=== PATIENT | female | born 1990 | race African-American/Black ===

== ENCOUNTER 2016-04-03 19:17 | Emergency (ER) | payer MEDICAID ==
[~2016-04-03] VITALS: Ht 172.7 cm; Wt 90.9 kg
[~2016-04-03 19:17] MED LIST: DOXY100C PO; GABA-529 PO; LISI-661 PO; METF500T4 PO; METR500 PO
[2016-04-03 19:51] LABS: GLUCOSE,POINT OF CARE 85 MG/DL (70-110)
[2016-04-03] MEDS ORDERED: HYDROCODONE/ACETAMINOPHEN 5-325 MG TABLET PO ONE (22:30)
[2016-04-03] MEDS ORDERED: DIAZEPAM 5 MG TABLET PO ONE (22:30)
[2016-04-03 22:43] VITALS: BP 121/81
== END 2016-04-03 22:44 | disposition home or self-care (01) ==
LOC: EMS 19:18
DX: S73.101A Unspecified sprain of right hip, initial encounter (principal); M54.5 Low back pain; E11.9 Type 2 diabetes mellitus without complications; I10 Essential (primary) hypertension; Z91.018 Allergy to other foods; X58.XXXA Exposure to other specified factors, initial encounter; Y93.89 Activity, other specified; Y92.89 Other specified places as the place of occurrence of the external cause; Y99.8 Other external cause status
CPT/HCPCS: 72100; 73502; 81025; 82962; 99284

== ENCOUNTER 2016-07-31 21:47 | Emergency (ER) | payer MEDICAID ==
[~2016-07-31] VITALS: Ht 172.7 cm; Wt 86.0 kg
[~2016-07-31 21:47] MED LIST changes: -DOXY100C PO; -METR500 PO
[2016-07-31 22:01] LABS: GLUCOSE,POINT OF CARE 285 MG/DL (70-110)
[2016-07-31] MEDS ORDERED: HYDROCODONE/ACETAMINOPHEN 5-325 MG TABLET PO ONE (22:15)
[2016-07-31 23:39] VITALS: BP 135/70
== END 2016-07-31 23:41 | disposition home or self-care (01) ==
LOC: EMS 21:48
DX: S90.31XA Contusion of right foot, initial encounter (principal); E11.9 Type 2 diabetes mellitus without complications; I10 Essential (primary) hypertension; Z91.018 Allergy to other foods; V09.9XXA Pedestrian injured in unspecified transport accident, initial encounter; Y93.89 Activity, other specified; Y92.89 Other specified places as the place of occurrence of the external cause; Y99.8 Other external cause status
CPT/HCPCS: 81025; 82962; 99284

== ENCOUNTER 2017-06-08 12:30 | Emergency (ER) | payer SELFPAY ==
[~2017-06-08] VITALS: Ht 172.7 cm; Wt 90.5 kg
[~2017-06-08 12:30] MED LIST changes: +DSS100 PO; -GABA-529 PO; +HYDR-309 PO; -LISI-661 PO; -METF500T4 PO
[2017-06-08] MEDS ORDERED: GABA-529 PO (13:03)
[2017-06-08] MEDS ORDERED: FLUO-191 PO (13:03)
[2017-06-08] MEDS ORDERED: LISI-661 PO (13:03)
[2017-06-08] MEDS ORDERED: METF500T4 PO (13:03)
[2017-06-08 13:07] LABS: GLUCOSE,POINT OF CARE 107 MG/DL (70-110)
[2017-06-08 13:59] VITALS: BP 153/96
[2017-06-08] MEDS ORDERED: KETOROLAC TROMETHAMINE 30 MG/ML VIAL IVP ONE (14:15)
[2017-06-08] MEDS ORDERED: IOVERSOL 320 MG/ML 100 ML VIAL ONE (14:16)
[2017-06-08] MEDS ORDERED: SODIUM CHLORIDE 0.9% 0 ML ONE (14:17)
[2017-06-08 14:27] LABS: BASOPHILS % (AUTO) 0.5 % (0.0-2.0); EOSINOPHILS % (AUTO) 0.6 % (1.0-6.0); HEMATOCRIT 37.4 % (36-46); HEMOGLOBIN 12.7 g/dL (12.0-16.0); LYMPHOCYTES # (AUTO) 2.5 K/uL (1.0-4.8); MEAN CORPUSCULAR HEMOGLOBIN 28.1 pg (26.0-34.0); MEAN CORPUSCULAR HGB CONC 33.9 G/dL (31.0-37.0); MEAN CORPUSCULAR VOLUME 83 fL (80-100); MONOCYTES # (AUTO) 0.8 K/uL (0.1-1.0); MONOCYTES % (AUTO) 7.3 % (2.0-9.0); NEUTROPHILS # (AUTO) 7.1 K/uL (1.8-7.7); NEUTROPHILS % (AUTO) 67.6 % (40.0-70.0); PLATELET COUNT (AUTO) 270 K/uL (150-450); RED BLOOD CELL COUNT(AUTO) 4.52 MIL/uL (4.00-5.20); RED CELL DISTRIBUTION WIDTH 14.2 % (11.5-14.5)
[2017-06-08 14:52] LABS: ANION GAP 5 mmol/L (8-16); CALCIUM, TOTAL 8.9 mg/dL (8.8-10.5); CARBON DIOXIDE 27 mmol/L (22-29); CHLORIDE 104 mmol/L (98-107); CREATININE 0.71 mg/dL (0.60-1.30); GLOMERULAR FILTR. RATE CALC > 60 mL/min (>60); GLUCOSE,RANDOM 88 mg/dL (70-110); POTASSIUM 3.8 mmol/L (3.5-5.1); SODIUM SERUM 136 mmol/L (136-145); UREA NITROGEN, BLOOD 10 mg/dL (7-18)
[2017-06-08 14:58] LABS: ALANINE AMINOTRANSFERASE 38 U/L (12-78); ALBUMIN 3.7 g/dL (3.4-5.0); ALKALINE PHOSPHATASE 46 U/L (46-116); ASPARTATE AMINOTRANSFERASE 26 U/L (15-37); BILIRUBIN,TOTAL 0.4 mg/dL (0.1-1.0); TOTAL PROTEIN, SERUM 7.8 g/dL (6.4-8.2)
== END 2017-06-08 15:41 | disposition home or self-care (01) ==
LOC: EMS 12:33
DX: R68.84 Jaw pain (principal); R13.10 Dysphagia, unspecified; E11.9 Type 2 diabetes mellitus without complications; I10 Essential (primary) hypertension
CPT/HCPCS: 70490; 80053; 82962; 84703; 85025; 96374; 99285; J1885; J7050

== ENCOUNTER 2023-09-19 13:08 | Emergency (ER) | payer MEDICAID ==
[~2023-09-19] VITALS: Ht 175.3 cm; Wt 85.0 kg
[~2023-09-19 13:08] MED LIST changes: -DSS100 PO; +FLUO-177 PO; +GABA-1216 PO; -HYDR-309 PO; +LISI-893 PO; +METF-1211 PO
[2023-09-19 13:13] VITALS: BP 131/78; PULSE 91; RESP 16; TEMP 98.3
== END 2023-09-19 15:16 | disposition left against medical advice (07) ==
LOC: EMS 13:13
DX: M25.512 Pain in left shoulder (principal); M54.6 Pain in thoracic spine; Z53.21 Procedure and treatment not carried out due to patient leaving prior to being seen by health care provider
CPT/HCPCS: 82962

== ENCOUNTER 2024-08-10 19:41 | Emergency (ER) | payer MEDICAID, OTHER ==
[~2024-08-10] VITALS: Ht 175.3 cm; Wt 90.9 kg
[2024-08-10 20:24] LABS: COVID AG,FIA SOURCE NASAL SWAB
[2024-08-10 20:51] LABS: RAPID GROUP A STREP NEGATIVE (NEGATIVE)
[2024-08-10 20:54] LABS: SARS-COV2 (COVID) ANTIGEN,FIA Negative (Negative)
[2024-08-10 20:55] LABS: INFLUENZA TYPE A NEGATIVE FOR TYPE A (NEGATIVE); INFLUENZA TYPE B NEGATIVE FOR TYPE B (NEGATIVE)
[2024-08-10 21:26] LABS: ANION GAP 6 mmol/L (8-16); CALCIUM, TOTAL 8.7 mg/dL (8.8-10.5); CARBON DIOXIDE 26 mmol/L (22-29); CHLORIDE 100 mmol/L (98-107); CREATININE 0.82 mg/dL (0.60-1.30); GLOMERULAR FILTR. RATE CALC > 60 mL/min (>60); GLUCOSE,RANDOM 250 mg/dL (70-110); POTASSIUM 3.8 mmol/L (3.5-5.1); SODIUM SERUM 132 mmol/L (136-145); UREA NITROGEN, BLOOD 12 mg/dL (7-18)
[2024-08-10 21:38] LABS: AMYLASE 51 U/L (25-115); HCG,QUANTITATIVE 1 mIU/mL (0-6); LIPASE 46 U/L (16-77)
[2024-08-10 21:39] LABS: EOSINOPHILS % (AUTO) 0.9 % (1.0-6.0); HEMOGLOBIN 13.3 g/dL (12.0-16.0); LYMPHOCYTES # (AUTO) 2.3 K/uL (1.0-4.8); LYMPHOCYTES % (AUTO) 27.5 % (22.0-44.0); MEAN CORPUSCULAR HEMOGLOBIN 28.4 pg (26.0-34.0); MEAN CORPUSCULAR HGB CONC 34.2 G/dL (31.0-37.0); MEAN CORPUSCULAR VOLUME 83 fL (80-100); MONOCYTES # (AUTO) 0.7 K/uL (0.1-1.0); MONOCYTES % (AUTO) 8.2 % (2.0-9.0); NEUTROPHILS # (AUTO) 5.3 K/uL (1.8-7.7); NEUTROPHILS % (AUTO) 62.4 % (40.0-70.0); PLATELET COUNT (AUTO) 261 K/uL (150-450); RED BLOOD CELL COUNT(AUTO) 4.68 MIL/uL (4.00-5.20); RED CELL DISTRIBUTION WIDTH 14.3 % (11.5-14.5); WHITE BLOOD COUNT (AUTO) 8.5 K/uL (4.5-11.0)
[2024-08-10 21:45] VITALS: TEMP 98.105288
[2024-08-10 22:56] LABS: ALBUMIN 3.6 g/dL (3.4-5.0); BILIRUBIN,DIRECT 0.1 mg/dL (0.00-0.20); BILIRUBIN,TOTAL 0.3 mg/dL (0.1-1.0); TOTAL PROTEIN, SERUM 7.9 g/dL (6.4-8.2)
[2024-08-10] MEDS: MORPHINE SULFATE 2 MG/ML SYRINGE IVP ONE (23:33)
[2024-08-10] MEDS: SODIUM CHLORIDE 0.9% 1,000 ML IV ONE (23:33)
[2024-08-10] MEDS: FAMOTIDINE 20 MG/2 ML VIAL IVP ONE (23:33)
[2024-08-11] MEDS: METOCLOPRAMIDE HCL 5 MG/ML 2 ML VIAL IVP ONE (00:45)
[2024-08-11 01:04] VITALS: BP 120/71; PULSE 69; RESP 18; O2SAT 98
[2024-08-11 01:16] LABS: APPEARANCE,URINE CLEAR (CLEAR); BILIRUBIN,URINE NEGATIVE (NEGATIVE); COLOR,URINE LIGHT YELLOW (YELLOW); GLUCOSE, URINE (UA) >=1000 mg/dL (NEGATIVE); KETONES,URINE TRACE mg/dL (NEGATIVE); LEUKOCYTE ESTERASE ,URINE NEGATIVE (NEGATIVE); NITRATE,URINE NEGATIVE (NEGATIVE); OCCULT BLOOD,URINE NEGATIVE (NEGATIVE); PROTEIN,URINE 30-70 mg/dL (NEGATIVE); SPECIFIC GRAVITIY, URINE 1.019 (1.003-1.030); UROBILINOGEN,URINE <=1.0 mg/dL (<=1.0)
[2024-08-11 01:23] LABS: ALCOHOL, URINE DRUG SCREEN NEGATIVE (NEGATIVE); AMPHET/METH SCREEN,URINE NEGATIVE (NEGATIVE); BARBITURATE SCREEN, URINE NEGATIVE (NEGATIVE); BENZODIAZEPINES SCREEN,URINE NEGATIVE (NEGATIVE); CANNABINOID SCREEN,URINE NEGATIVE (NEGATIVE); COCAINE SCREEN,URINE NEGATIVE (NEGATIVE); METHADONE SCREEN, URINE NEGATIVE (NEGATIVE); OPIATE SCREEN,URINE POSITIVE (NEGATIVE); PHENCYCLIDINE SCREEN,URINE NEGATIVE (NEGATIVE)
[2024-08-11 01:24] LABS: BACTERIA,URINE None Seen /HPF (None Seen); RBC,URINE 0-2 /HPF (0-2); SQUAMOUS EPITHELIAL CELL,UR Rare /LPF (None Seen); WBC,URINE 0-2 /HPF (0-5)
[2024-08-11 01:36] LABS: GLUCOMETER DEV NAME(LOC) ERT.7; GLUCOSE,POINT OF CARE 245 MG/DL (70-110)
[2024-08-11] MEDS ORDERED: POLY119P3 PO (02:14)
== END 2024-08-11 02:29 | disposition home or self-care (01) ==
LOC: EMS 19:41
DX: K59.00 Constipation, unspecified (principal); R10.13 Epigastric pain; E11.9 Type 2 diabetes mellitus without complications; I10 Essential (primary) hypertension; M19.90 Unspecified osteoarthritis, unspecified site; Z90.49 Acquired absence of other specified parts of digestive tract; Z79.899 Other long term (current) drug therapy; Z20.822 Contact with and (suspected) exposure to COVID-19
CPT/HCPCS: 99285; 74176; 96374; 76705; 96361; 96375 ×2; 87426; 80048; 80076; 81001; 82150; 82962; 83690; 84702; 85025; 87430; 87804; 36415; 93005; 80307; J3490; J2270; J7030; J2765